=== PATIENT | female | born 1965 ===

== ENCOUNTER 2018-01-28 09:17 | Emergency (ER) | payer MEDICAID ==
[2018-01-28 09:20] VITALS: BMI 39.9
[2018-01-28 09:21] VITALS: RESP 16; TEMP 98
--- NOTE | 2018-01-28 11:05 | ED PDOC ---
Lower Extremity Pain/Injury Time Seen by Provider: 01/28/18 09:25 Chief Complaint (Nursing): Lower Extremity Problem/Injury Chief Complaint (Provider): Lower Extremity Problem/Injury History Per: Patient History/Exam Limitations: no limitations Additional Complaint(s): 52 years old female with history of depression and seizure presents to the ED for evaluation of lower bilateral leg pain onset 4 days. Patient reports more pain to right leg and mild pain to the left. She denies any trauma or fall. denies any PE risk factors. no chest pain. has mild lower back pain. no abdominal pain. PMD: non provided Past Medical History Reviewed: Historical Data, Nursing Documentation, Vital Signs Vital Signs: Last Vital Signs Temp 98 F 01/28/18 09:20 Pulse 107 H 01/28/18 09:20 Resp 16 01/28/18 09:20 BP 122/84 01/28/18 09:20 Pulse Ox 96 01/28/18 09:20 - Medical History PMH: Anxiety, Depression, Hypothyroidism, Seizures (Epilepsy, last episode 2 days ago) Denies: Chronic Kidney Disease - Surgical History Surgical History: Cholecystectomy, - Family History Family History: States: Unknown Family Hx - Social History Current smoker - smoking cessation education provided: No Alcohol: None Drugs: Denies - Home Medications Home Medications: Ambulatory Orders Medication Instructions Recorded Lacosamide [Vimpat] 200 mg PO BID 03/25/14 Topiramate [Topamax] 200 mg PO HS 03/25/14 ARIPiprazole [Abilify] 2 mg PO QAM 12/02/15 Alprazolam [Xanax] 0.5 mg PO BID PRN 12/02/15 Aspirin [Ecotrin] 81 mg PO DAILY 12/02/15 Escitalopram [Lexapro] 10 mg PO QAM 12/02/15 Lamotrigine [Lamictal] 300 mg PO BID 12/02/15 Mirtazapine [Remeron] 7.5 mg PO HS 12/02/15 Sumatriptan Succinate [Imitrex] 100 mg PO PRN PRN 12/02/15 Topiramate [Topamax] 100 mg PO QAM 12/02/15 Zolpidem [Ambien] 10 mg PO HS 12/02/15 metroNIDAZOLE [Flagyl] 500 mg PO TID #21 tab 12/02/15 oxyCODONE/Acetaminophen [Percocet 1 tab PO Q6 PRN #20 tab 12/02/15 5/325 mg Tab] Ondansetron [Zofran] 8 mg PO Q8H #0 tab 12/04/15 Pantoprazole [Protonix EC Tab] 40 mg PO DAILY #0 ect 12/04/15 Ibuprofen [Motrin] 600 mg PO Q6H PRN #20 tab 01/28/18 - Allergies Allergies/Adverse Reactions: Allergies Allergy/AdvReac Type Severity Reaction Status Date / Time No Known Allergies Allergy Verified 01/28/18 09:37 Wells Criteria for PE - Wells Criteria for Pulmonary Embolism Clinical Signs and Symptoms of DVT: No P.E is #1 Diagnosis, or Equally Likely: No Heart Rate >100: No Immobilization at least 3 days;Surgery previous 4 weeks: No Previous, objectively diagnosed PE or DVT: No Hemoptysis: No Malignancy w/treatment within 6 months, or palliative: No Total Score: 0 Review of Systems ROS Statement: Except As Marked, All Systems Reviewed And Found Negative Musculoskeletal: Positive for: Back Pain (mild), Leg Pain (Bilateral) Neurological: Negative for: Weakness, Numbness, Incoordination, Change in Speech , Confusion, Seizures, Altered Mental Status, Headache, Dizziness Physical Exam - Reviewed Nursing Documentation Reviewed: Yes Vital Signs Reviewed: Yes - Physical Exam Appears: Positive for: Non-toxic, No Acute Distress Head Exam: Positive for: ATRAUMATIC, NORMOCEPHALIC Skin: Positive for: Normal Color, Warm, Dry Neck: Positive for: Normal Cardiovascular/Chest: Positive for: Regular Rate, Rhythm Respiratory: Positive for: Normal Breath Sounds Gastrointestinal/Abdominal: Positive for: Soft Extremity: Positive for: Normal ROM, Capillary Refill (less than 2 s). Negative for: Tenderness, Pedal Edema, Calf Tenderness, Deformity, Swelling Neurologic/Psych: Positive for: Alert, Oriented. Negative for: Motor/Sensory Deficits - ECG O2 Sat by Pulse Oximetry: 96 (RA) Pulse Ox Interpretation: Normal Medical Decision Making Medical Decision Making: Time: 1024 Initial Impression: leg pain, bilateral with mild lower back pain Rule out plot and lumbar spine deformity Initial Plan: --CT Lumbar Spine W/O Contrast --US Duplex Lower Extremity 113[address] Ct Lumbar Spine FINDINGS: VERTEBRAE: Unremarkable. No fracture. Normal alignment. DISCS/SPINAL CANAL/NEURAL FORAMINA: L1-2: Unremarkable. L2-3: Unremarkable. L3-4: Unremarkable. L4-5: Intervertebral disc space maintained. Mild diffuse disc bulge. No focal disc herniation. Extensive bilateral degenerative facet arthropathy. This results in moderate right neural foraminal stenosis. No left neural foraminal stenosis. No central spinal stenosis. L5-S1: Narrowing of intervertebral disc space. Mild subchondral sclerosis. No disc bulge or herniation. Moderate bilateral degenerative facet arthropathy. No spinal or neural foraminal stenosis. PARASPINAL SOFT TISSUES: Possible fatty infiltration of the liver. Status post cholecystectomy. OTHER FINDINGS: None. IMPRESSION: Bilateral degenerative facet arthropathy at L4-5 with mild disc bulge. Moderate right L4-5 neural foraminal stenosis. Degenerative disc disease L5-S1. Moderate bilateral degenerative facet arthropathy. No other spinal or neural foraminal stenosis appreciated throughout the lumbar spine. No fracture or listhesis. [address] FINDINGS: COMMON FEMORAL VEIN: Right CFV: Unremarkable. Left CFV: Unremarkable. SUPERFICIAL FEMORAL VEIN: Right SFV: Unremarkable. Left SFV: Unremarkable. POPLITEAL VEIN: Right Popliteal: Unremarkable. Left Popliteal: Unremarkable. POSTERIOR TIBIAL VEIN: Right PTV: Unremarkable. Left PTV: Unremarkable. OTHER FINDINGS: None. IMPRESSION: No evidence of deep venous thrombosis bilaterally. Results discussed with patient using Magnolia Perdue RN. gave her copy of CT so that she can follow up with orthopedist. pt ambulating, states the toradol helped her considerably. ambulating comfortably. ----- Scribe Attestation: Documented by Apryl Sandhu, acting as a scribe for Chao Zuluaga MD. Provider Scribe Attestation: All medical record entries made by the Scribe were at my direction and personally dictated by me. I have reviewed the chart and agree that the record accurately reflects my personal performance of the history, physical exam, medical decision making, and the department course for this patient. I have also personally directed, reviewed, and agree with the discharge instructions and disposition. Disposition - Clinical Impression Clinical Impression: Leg pain - Patient ED Disposition Is Patient to be Admitted: No Counseled Patient/Family Regarding: Studies Performed, Diagnosis, Need For Followup - Disposition Referrals: [facility] [Outside] Igor Coronado MD [Staff Provider] - Disposition: Routine/Home Disposition Time: 13:20 Condition: IMPROVED Additional Instructions: follow up with your primary doctor and orthopedics for back pain in 1-2 days return to the ED with any worsening or concerning symptoms Prescriptions: Ibuprofen [Motrin] 600 mg PO Q6H PRN #20 tab PRN Reason: Pain, Moderate (4-7) Instructions: Low Back Pain (DC), Muscle and Bone Pain (DC) Forms: [facility] (Moroccan) Print Language: BULGARIAN
--- NOTE | 2018-01-28 11:40 | CT ---
PROCEDURE: CT Lumbar Spine without contrast HISTORY: r greater than left leg pain COMPARISON: None. TECHNIQUE: Axial computed tomography images were obtained of the lumbar spine without the use of intravenous contrast. Coronal and sagittal reformatted images were created and reviewed. Radiation dose: Total exam DLP = 1331.55 mGy-cm. This CT exam was performed using one or more of the following dose reduction techniques: Automated exposure control, adjustment of the mA and/or kV according to patient size, and/or use of iterative reconstruction technique. FINDINGS: VERTEBRAE: Unremarkable. No fracture. Normal alignment. DISCS/SPINAL CANAL/NEURAL FORAMINA: L1-2: Unremarkable. L2-3: Unremarkable. L3-4: Unremarkable. L4-5: Intervertebral disc space maintained. Mild diffuse disc bulge. No focal disc herniation. Extensive bilateral degenerative facet arthropathy. This results in moderate right neural foraminal stenosis. No left neural foraminal stenosis. No central spinal stenosis. L5-S1: Narrowing of intervertebral disc space. Mild subchondral sclerosis. No disc bulge or herniation. Moderate bilateral degenerative facet arthropathy. No spinal or neural foraminal stenosis. PARASPINAL SOFT TISSUES: Possible fatty infiltration of the liver. Status post cholecystectomy. OTHER FINDINGS: None. IMPRESSION: Bilateral degenerative facet arthropathy at L4-5 with mild disc bulge. Moderate right L4-5 neural foraminal stenosis. Degenerative disc disease L5-S1. Moderate bilateral degenerative facet arthropathy. No other spinal or neural foraminal stenosis appreciated throughout the lumbar spine. No fracture or listhesis.
--- NOTE | 2018-01-28 13:02 | US ---
PROCEDURE: Bilateral lower extremity venous duplex Doppler. HISTORY: r greater than left leg pain COMPARISON: None available. TECHNIQUE: Bilateral common femoral, superficial femoral, popliteal and posterior tibial veins were evaluated. Flow was assessed with color Doppler, compressibility, assessment of phasic flow and augmentation response. FINDINGS: COMMON FEMORAL VEIN: Right CFV: Unremarkable. Left CFV: Unremarkable. SUPERFICIAL FEMORAL VEIN: Right SFV: Unremarkable. Left SFV: Unremarkable. POPLITEAL VEIN: Right Popliteal: Unremarkable. Left Popliteal: Unremarkable. POSTERIOR TIBIAL VEIN: Right PTV: Unremarkable. Left PTV: Unremarkable. OTHER FINDINGS: None. IMPRESSION: No evidence of deep venous thrombosis bilaterally.
[2018-01-28 14:57] VITALS: BP 120/82; PULSE 92
[2018-01-28 15:04] VITALS: O2SAT 96
== END 2018-01-28 15:00 | disposition home or self-care (01) ==
LOC: H.ER 09:17
DX: M79.604 Pain in right leg (principal); M79.605 Pain in left leg
CPT/HCPCS: 72131; 81025; 93970; 96372; 99283; J1885